=== PATIENT | male | born 1940 | race Caucasian/White ===

== ENCOUNTER 2021-10-30 11:42 | Emergency (ER) | payer MEDICARE ==
[~2021-10-30 11:42] MED LIST: ACETAMINOPHEN500 M1 PO; COLACE100 MG PO; EUTHYROX100 MCG PO; FLOMAX0.4 MG PO; LISINOPRIL-HCT1 EAC2 PO; MOTRIN600 MG PO; OXY-IR 5MG5 MG PO
== END 2021-10-30 14:37 | disposition home or self-care (01) ==
LOC: FER 11:42
DX: S01.01XA Laceration without foreign body of scalp, initial encounter (principal); E78.5 Hyperlipidemia, unspecified; E03.9 Hypothyroidism, unspecified; Z23 Encounter for immunization; W19.XXXA Unspecified fall, initial encounter; Y92.009 Unspecified place in unspecified non-institutional (private) residence as the place of occurrence of the external cause
CPT/HCPCS: 70450; 72125; 90471; 90715